=== PATIENT | female | born 1990 | race Hispanic/Latino ===

== ENCOUNTER 2025-06-05 13:11 | Emergency (ER) | payer SELFPAY | END 2025-06-05 15:27 | disposition home or self-care (01) | LOC: CSHERS 13:11 | DX: O26.851 Spotting complicating pregnancy, first trimester (principal); O36.80X0 Pregnancy with inconclusive fetal viability, not applicable or unspecified; Z3A.11 11 weeks gestation of pregnancy | CPT/HCPCS: 76856; 99284 ==

== ENCOUNTER 2025-06-07 12:05 | Emergency (ER) | payer SELFPAY ==
[2025-06-07 13:16] LABS: #Basophils Less than 0.03 10x3/uL (0.0-0.2); #Eosinophils 0.07 10x3/uL (0.0-0.5); #Monocytes 0.42 10x3/uL (0.0-1.1); #Neutrophils 5.50 10x3/uL (1.5-8.4); %Basophils 0.3 % (0.0-2.0); %Eosinophils 1.0 % (0.0-6.0); %Lymphocytes 16.9 % (18.0-47.0); %Monocytes 5.8 % (0.0-10.0); %Neutrophils 75.7 % (40.0-75.0); Hematocrit 34.3 % (34.9-44.5); Hemoglobin 10.4 g/dL (12.0-15.5); Mean Corpuscular Hemoglobin 24.2 pg (27.0-33.0); Mean Corpuscular Volume 79.8 fL (81.6-98.3); Platelet Count 268 10x3/uL (150-450); Red Blood Cell (RBC) Count 4.30 10x6/uL (3.90-5.03); White Blood Cell (WBC) Count 7.26 10x3/uL (3.5-10.5)
[2025-06-07 13:35] LABS: ALT (SGPT) 7 U/L (Less than 34); AST (SGOT) 14 U/L (11-34); Albumin 4.5 g/dL (3.1-4.5); Alkaline Phosphatase 66 U/L (40-110); Anion Gap 11 mmol/L (10-20); BUN (Urea Nitrogen) 8 mg/dL (7.0-18.7); Bilirubin, Total 0.3 mg/dL (0.3-1.2); Calc. Creatinine Clearance 0 mL/min (70-130); Calcium 8.8 mg/dL (7.8-10.44); Carbon Dioxide 22 mmol/L (22-29); Chloride 109 mmol/L (98-107); Globulin 3.5 g/dL (2.4-3.5); Glucose 94 mg/dL (70-105); Potassium 4.2 mmol/L (3.5-5.1); Sodium 138 mmol/L (136-145)
[2025-06-07 16:49] LABS: Glucose, Urine (Dipstick) Normal (Negative); Leukocyte 25 (Negative); Protein, Urine (Dipstick) 100 mg/dl (Neg-Trace); Specific Gravity, Urine 1.005 (1.005-1.030)
[2025-06-07 17:00] LABS: Bacteria/HPF None Seen HPF (None Seen); CAUTI Indications for Culture Pelvic or flank pain; RBC/HPF Greater than 50 HPF (0-3); WBC/HPF None Seen HPF (0-3)
[2025-06-07 17:01] LABS: Urine Culture Reflex No No
== END 2025-06-07 17:35 | disposition home or self-care (01) ==
LOC: CSHERS 12:05
DX: O99.891 Other specified diseases and conditions complicating pregnancy (principal); R82.71 Bacteriuria; Z3A.00 Weeks of gestation of pregnancy not specified
CPT/HCPCS: 36415; 76856; 80053; 81001; 84702; 85025; 86900; 86901

== ENCOUNTER 2025-06-17 11:12 | Emergency (ER) | payer SELFPAY | END 2025-06-17 12:57 | disposition home or self-care (01) | LOC: CSHERS 11:12 | DX: O03.4 Incomplete spontaneous abortion without complication (principal); Z75.8 Other problems related to medical facilities and other health care | CPT/HCPCS: 36415; 84702; 99282 ==

== ENCOUNTER 2025-06-22 12:02 | Emergency (ER) | payer SELFPAY | END 2025-06-22 14:20 | disposition home or self-care (01) | LOC: CSHERS 12:02 | DX: O03.9 Complete or unspecified spontaneous abortion without complication (principal) | CPT/HCPCS: 36415; 84702; 99283 ==